=== PATIENT | male | born 1990 | race Caucasian/White ===

== ENCOUNTER 2017-07-27 17:52 | Emergency (ER) | payer BC ==
[~2017-07-27] VITALS: Ht 195.6 cm; Wt 101.2 kg
[2017-07-27 17:55] VITALS: BP 121/75
[2017-07-27] MEDS ORDERED: BACITRACIN ZINC OINT 500U/GM, 0.9 GM ONE (18:28)
== END 2017-07-27 18:47 | disposition home or self-care (01) ==
LOC: ED 18:41
DX: S61.213A Laceration without foreign body of left middle finger without damage to nail, initial encounter (principal); W26.0XXA Contact with knife, initial encounter; Y93.89 Activity, other specified; Y92.000 Kitchen of unspecified non-institutional (private) residence as the place of occurrence of the external cause; Y99.8 Other external cause status
CPT/HCPCS: 12001